=== PATIENT | female | born 1945 | race Caucasian/White ===

== ENCOUNTER → 2022-02-26 | Outpatient (CLI) | payer MEDICARE ==
[~2022-02-26] MED LIST: AVALOX; CELE100; METO25ER PO; Pepcid20 MG PO; TRAM50; TRAZ100; Zofran Odt4 MG SL; [UNRECOGNIZED DRUG - OTHER]
== END | disposition home or self-care (01) ==
LOC: LAB SHORT 15:19
DX: L57.0 Actinic keratosis (principal)
CPT/HCPCS: 88305